=== PATIENT | female | born 1995 | race American Indian/Alaskan Native ===

== ENCOUNTER 2021-01-12 22:51 | Emergency (ER) | payer SELFPAY ==
[2021-01-13 01:09] LABS: Hemoglobin 14.4 gm/dl (10.1-14.3); Mean Corpuscular HGB Conc 33 % (30-34); Mean Corpuscular Volume 92 fl (79-97); Platelet Count 217 K/mm3 (140-440); Red Cell Distribution Width 13.4 % (13.2-15.2)
[2021-01-13 01:21] LABS: Alanine Aminotransferase 9 units/L (7-56); Albumin 4.3 g/dL (3.9-5); BUN/Creatinine Ratio 18; Blood Urea Nitrogen 16 mg/dL (7-17); Calcium 9.7 mg/dL (8.4-10.2); Hemolysis Index 3
[2021-01-13] MEDS ORDERED: SODIUM CHLORIDE 0.9% 1000 ML 1,000 ML IV ONE (02:10)
[2021-01-13] MEDS ORDERED: METOCLOPRAMIDE 10 MG/2 ML INJ IV STA (02:10)
[2021-01-13] MEDS ORDERED: KETOROLAC 30 MG/1 ML INJ IV STA (02:10)
[2021-01-13] MEDS ORDERED: diphenhydrAMINE 50 MG/ML VIAL IV STA (02:10)
[2021-01-13 04:12] LABS: Total Cells Counted 100
[2021-01-13 04:14] LABS: Ovalocytes Few; Platelet Estimate Consistent w Auto
[2021-01-13 04:20] VITALS: BP 102/63
== END 2021-01-13 04:22 | disposition home or self-care (01) ==
LOC: ED 22:51
DX: G43.909 Migraine, unspecified, not intractable, without status migrainosus (principal); Z53.21 Procedure and treatment not carried out due to patient leaving prior to being seen by health care provider
CPT/HCPCS: 36415; 80053; 84703; 85007; 85025; 96374; 96375; J1200; J1885; J2765; J7030; Q0162

== ENCOUNTER 2021-01-18 16:30 | Emergency (ER) | payer SELFPAY ==
[2021-01-18 16:36] VITALS: BP 127/86
--- NOTE | 2021-01-18 17:54 | Emergency Department Report ---
ED General Adult HPI - General Chief complaint: Headache Stated complaint: STOMACH PAIN/MIGRAINES Time Seen by Provider: 01/18/21 17:28 Source: patient Mode of arrival: Ambulatory Limitations: No Limitations - History of Present Illness Initial comments: Patient is a 25-year-old female presents emergency room with complaints of a headache that began approximately a week ago. Patient states that she was evaluated in the emergency department and started on Fioricet. She reports that whenever she takes the Fioricet she feels dizzy and nauseous and reports that she has had one episode of vomiting. She states that she also has right-sided neck pain. She denies any fall or injury. She reports that she has had a history of migraines in the past. She denies any vision changes, numbness, weakness, neck stiffness, fever, gait disturbance, speech disturbance. No allergies to medications. - Related Data Previous Rx's Medication Instructions Recorded Last Taken Type Butalb/Acetaminophen/Caffeine 1 cap PO Q8HR PRN #14 cap 01/13/21 Unknown Rx [Fioricet 50-300-40 mg CAP] Meclizine [Antivert] 25 mg PO TID PRN #20 tablet 01/18/21 Unknown Rx Menthol/Camphor [[place] 1 applicatio TP BID #18 oint...g. 01/18/21 Unknown Rx Ointment] Naproxen 375 mg PO BID PRN #14 tablet.dr 01/18/21 Unknown Rx methOCARBAMOL [Robaxin TAB] 500 mg PO BID PRN #14 tab 01/18/21 Unknown Rx Allergies Allergy/AdvReac Type Severity Reaction Status Date / Time cat dander Allergy Mild Itching Verified 01/18/21 16:36 dog dander Allergy Mild Itching Verified 01/18/21 16:36 ED Review of Systems ROS: Stated complaint: STOMACH PAIN/MIGRAINES Other details as noted in HPI Comment: All other systems reviewed and negative ED Past Medical Hx - Past Medical History Hx Asthma: Yes - Medications Home Medications: Home Medications Medication Instructions Recorded Confirmed Last Taken Type Butalb/Acetaminophen/Caffeine 1 cap PO Q8HR PRN #14 cap 01/13/21 Unknown Rx [Fioricet 50-300-40 mg CAP] Meclizine [Antivert] 25 mg PO TID PRN #20 tablet 01/18/21 Unknown Rx Menthol/Camphor [[place] 1 applicatio TP BID #18 oint...g. 01/18/21 Unknown Rx Ointment] Naproxen 375 mg PO BID PRN #14 tablet. 01/18/21 Unknown Rx methOCARBAMOL [Robaxin TAB] 500 mg PO BID PRN #14 tab 01/18/21 Unknown Rx ED Physical Exam - General Limitations: No Limitations General appearance: alert, in no apparent distress - Head Head exam: Present: atraumatic, normocephalic - Eye Eye exam: Present: normal appearance - ENT ENT exam: Present: mucous membranes moist - Neck Neck exam: Present: normal inspection, tenderness (right sided c-spine paraspinal muscular ttp, no midline C-spine ttp, no step offs, no deformities), full ROM. Absent: meningismus - Respiratory Respiratory exam: Present: normal lung sounds bilaterally. Absent: respiratory distress, wheezes, rales, rhonchi, stridor, chest wall tenderness, accessory muscle use, decreased breath sounds, prolonged expiratory - Cardiovascular Cardiovascular Exam: Present: regular rate, normal rhythm, normal heart sounds. Absent: systolic murmur, diastolic murmur, rubs, gallop - Neurological Exam Neurological exam: Present: alert, oriented X3, CN II-XII intact, normal gait. Absent: motor sensory deficit - Psychiatric Psychiatric exam: Present: normal affect, normal mood - Skin Skin exam: Present: warm, dry, intact ED Course Vital Signs 01/18/21 01/18/21 16:34 18:11 Temperature 98.2 F Pulse Rate 97 H 77 Respiratory 14 Rate Blood Pressure 127/86 [Left] O2 Sat by Pulse 100 100 Oximetry ED Medical Decision Making - Medical Decision Making Patient is a 25-year-old female presents emergency room with complaints of a headache that began approximately a week ago. Patient states that she was evaluated in the emergency department and started on Fioricet. She reports that whenever she takes the Fioricet she feels dizzy and nauseous and reports that she has had one episode of vomiting. She states that she also has right-sided neck pain. She denies any fall or injury. She reports that she has had a history of migraines in the past. She denies any vision changes, numbness, weakness, neck stiffness, fever, gait disturbance, speech disturbance. No allergies to medications. Vitals are stable. On exam:right sided c-spine paraspinal muscular ttp, no midline C-spine ttp, no step offs, no deformities, no focal neuro deficits, ambulatory no difficulty, no meningeal signs. Patient has had no trauma. She has no fever. Symptoms could be related to tension headaches versus migraines. She reports that the Fioricet makes her feel dizziness and nausea. Advised her to stop the Fioricet and will write new medications. Discussed the importance of outpatient primary care follow-up for reexamination. Discussed return precautions. Advised patient Please take medication as prescribed. Please stop taking Fioricet. Increase your water intake. Follow-up with your primary care doctor for reexamination. Return to emergency room for any new or worsening symptoms. Critical care attestation.: If time is entered above; I have spent that time in minutes in the direct care of this critically ill patient, excluding procedure time. ED Disposition Clinical Impression: Neck pain Headache Qualifiers: Headache type: unspecified Headache chronicity pattern: acute headache Intractability: not intractable Qualified Code(s): R51.9 - Headache, unspecified Disposition: 01 HOME / SELF CARE / HOMELESS Is pt being admited?: No Does the pt Need Aspirin: No Condition: Stable Instructions: Tension Headache, Adult Additional Instructions: Please take medication as prescribed. Please stop taking Fioricet. Increase your water intake. Follow-up with your primary care doctor for reexamination. Return to emergency room for any new or worsening symptoms. Prescriptions: Meclizine [Antivert] 25 mg PO TID PRN #20 tablet PRN Reason: dizziness/nausea Naproxen 375 mg PO BID PRN #14 tablet. PRN Reason: headache methOCARBAMOL [Robaxin TAB] 500 mg PO BID PRN #14 tab PRN Reason: muscle spasm/pain Menthol/Camphor [[place] Ointment] 1 applicatio TP BID #18 oint...g. Referrals: RAVEN TOVAR MD [Staff Physician] - 2-3 Days [facility] [Provider Group] - 2-3 Days Forms: Work/School Release Form(ED) Time of Disposition: 17:53 Print Language: TONGAN
== END 2021-01-18 18:11 | disposition home or self-care (01) ==
LOC: ED 16:30
DX: M54.2 Cervicalgia (principal); R51.9 Headache, unspecified; J45.909 Unspecified asthma, uncomplicated; Z91.09 Other allergy status, other than to drugs and biological substances; Z79.899 Other long term (current) drug therapy
CPT/HCPCS: 99282